=== PATIENT | male | born 1980 | race Caucasian/White ===

== ENCOUNTER 2019-09-13 18:24 | Emergency (ER) | payer OTHER, SELFPAY ==
[2019-09-13 18:26] VITALS: BP 154/97; PULSE 112; RESP 20; TEMP 36.9; O2SAT 96; BMI 43.0
--- NOTE | 2019-09-13 18:32 | XR_ITS ---
WS: [id number] XR chest 1V portable [id number] REASON FOR EXAM: cough FINDINGS: The cardiac silhouette is upper limits of normal. No pneumonia, pleural effusion, pulmonary edema, or mass effect. The hilum and apices normal No osseous abnormalities. XR/XR chest 1V portable [id number] IMPRESSION: Negative chest for acute pathology.
[2019-09-13 18:55] LABS: Basophils # 0.1 10^3/uL (0.0-0.1); Basophils % 0.6 %; Eosinophils # 0.4 10^3/uL (0.0-0.8); Eosinophils % 5.2 %; Hematocrit 39.9 % (42.0-52.0); Hemoglobin 13.5 g/dL (11.7-16.6); Lymphocytes # 2.5 10^3/uL (0.8-4.8); Lymphocytes % 31.7 %; Mean Corpuscular HGB Conc 33.8 g/dL (30.0-36.0); Mean Corpuscular Hemoglobin 29.3 pg (28.0-34.0); Mean Corpuscular Volume 86.6 fL (80-94); Mean Platelet Volume 11.7 fL (7.4-10.4); Monocytes # 0.7 10^3/uL (0.2-0.9); Monocytes % 9.3 %; Neutrophils # 4.1 10^3/uL (1.8-7.7); Neutrophils % 52.8 %; Nucleated Red Blood Cells % 0 %; Platelet Count 190 10^3/cmm (130-400); Red Blood Count 4.61 10^6/uL (4.1-5.3); White Blood Count 7.8 10^3/uL (4.0-10.0)
[2019-09-13 19:11] LABS: Alanine Aminotransferase 35 U/L (0-41); Albumin Level 4.3 g/dL (3.5-5.2); Alkaline Phosphatase 64 IU/L (40-130); Anion Gap 15.3 (5-19); Aspartate Amino Transferase 23 U/L (0-40); Blood Urea Nitrogen 10 mg/dL (6-20); Calcium 8.8 mg/dL (8.5-10.5); Carbon Dioxide 25 mmol/L (22-29); Chloride 100 mmol/L (98-107); Globulin 3.1 g/dL (1.3-4.6); Glomerular Filtration Rate 60.8 mL/min (90-130); Glucose 249 mg/dL (65-115); Osmolality Calculated 284 mOsm/kg (285-295); Potassium 5.3 mmol/L (3.5-5.1); Sodium 135 mmol/L (136-145); Total Bilirubin 0.3 mg/dL (0.15-1.2); Total Protein 7.4 g/dL (6.6-8.7)
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
[2019-09-13] MEDS: sodium chloride 0.9% 1,000 ML 999 ML IV ×2 (19:21→20:29)
[2019-09-13 19:43] LABS: ABG PCO2 37.6 mmHg (35-45); Base Excess ABG -1.1 mmol/L (-2.0-2.0); HCO3 ABG 23.3 mmol/L (22-26); Potassium Level - ABG 4.3 mmol/L (3.5-5.0)
[2019-09-13 19:44] LABS: Arterial Blood Gas Hematocrit 42.7 % (42-52); Blood Gas CCRB Time 1915; Ionized Calcium Level - ABG 1.2 mmol/L (1.1-1.4); Total Hemoglobin 13.9 g/dL (14-18)
[2019-09-13 19:45] LABS: Carboxyhemoglobin 0.4 %THgb (0.4-20.1); Methemoglobin 0.6 % (0.4-1.5)
[2019-09-13 19:50] VITALS: PULSE 91; RESP 18; O2SAT 97
[2019-09-13] MEDS: ipratropium-albuterol 3 mL Neb 9 ML INHALATION (19:50)
[2019-09-13 20:04] LABS: Lactic Sepsis W/Reflex 1.8 mmol/L (0.5-2.2)
[2019-09-13 21:50] VITALS: BP 155/83; PULSE 83; RESP 18; O2SAT 96
[2019-09-13] MEDS: sodium chloride 0.9% 1,000 ML 100 ML IV (22:03)
[2019-09-13 22:08] LABS: ABG PCO2 35.7 mmHg (35-45); ABG PH Result 7.39 (7.35-7.45); Arterial Blood Gas Hematocrit 42.8 % (42-52); Base Excess ABG -2.6 mmol/L (-2.0-2.0); Blood Gas Allen Test Pos; Blood Gas Sample Site Radial, right; Blood Gas Sample Type Arterial; HCO3 ABG 21.7 mmol/L (22-26); Oxygen Device ROOM AIR; PO2 ABG 83.2 mmHg (80.0-100.0)
[2019-09-13] MEDS: predniSONE 20 mg Tablet 60 MG PO (22:54)
--- NOTE | 2019-09-13 23:01 | PC.NURSE ---
Patient confirmed name and birthdate, voiced no known allergies, 5 rights of medication administration confirmed, albuterol inhalation via inhaler 2 puffs once given.
[2019-09-13 23:03] VITALS: BP 133/88; PULSE 98; RESP 18; O2SAT 94
[2019-09-16 13:49] LABS: Alveolar-Arterial Oxygen Gradi 24.6 mmHg (5-10); Blood Gas Allen Test Pos; Blood Gas Sample Site Radial, right; Blood Gas Sample Type Arterial; HGB O2 Sat 95.1 % (95-100); Oxygen Device NC
== END 2019-09-13 23:04 | disposition home or self-care (01) ==
PROVIDERS: Emergency Provider Emergency Medicine; Family Provider Family Medicine; PCP Family Medicine
DX: J70.5 Respiratory conditions due to smoke inhalation (principal); Z79.84 Long term (current) use of oral hypoglycemic drugs; E11.9 Type 2 diabetes mellitus without complications; I10 Essential (primary) hypertension
CPT/HCPCS: 12345; 36600; 71045; 80051; 80053; 82803; 82810; 83605; 83986; 85025; 94640; 96361; 96374; 96375; 99282; 99284; J2930; J3535; J7030; J7512

== ENCOUNTER 2020-05-04 19:58 | Emergency (ER) | payer OTHER, SELFPAY ==
[2020-05-04 20:25] VITALS: BP 159/95; PULSE 92; RESP 16; TEMP 36.8; O2SAT 97; BMI 43.5
--- NOTE | 2020-05-04 20:39 | USR_ITS ---
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 Calf is swollen and very painful. ; Additional info: Pain, swelling TECHNIQUE: Imaging protocol: Real-time Duplex ultrasound of the Right Lower Extremity with 2-D monet scale, color Doppler flow and spectral waveform analysis with image documentation. Limited exam was focused on the right lower extremity veins. COMPARISON: No relevant prior studies available. FINDINGS: Right deep veins: Unremarkable. The common femoral, femoral, proximal profunda femoral and popliteal veins are patent without thrombus. Normal Doppler waveforms. Normal compressibility and/or augmentation response. Right superficial veins: Unremarkable. Saphenofemoral junction is patent without thrombus. Soft tissues: Small amount of fluid in the fascial plane between the subcutaneous tissues and the underlying musculature. This could be due prior injury. Per report from the geodetic surveyor technologist, this corresponds to the site of the patient's pain. US/[place] [id number] IMPRESSION: 1. No evidence for deep venous thrombosis. 2. Small amount of fluid in the fascial plane between the subcutaneous tissues and the underlying musculature. This could be due prior injury. Per report from the geodetic surveyor technologist, this corresponds to the site of the patient's pain.
--- NOTE | 2020-05-04 20:40 | W.ED.EXTPRO ---
HPI - Extremity Problem General: Chief complaint: Extremity Injury, Lower Stated complaint: believes he tore muscle in right calf/workmans com Time Seen by Provider: 05/04/20 20:35 History of Present Illness: HPI Narrative: Patient says he stepped out of her truck last night felt sharp pain to behind his leg in the calf area in the right side. He said he almost went down. He continues to bother him. Denies any injury that he is aware of. MD Complaint: extremity pain and extremity swelling Onset (ago): day(s) Pain Consistency: constant Location: right and lower extremity Severity scale (1-10): 6 Quality: stabbing and aching Radiation: none Relieving factors: immobilization Exacerbating factors: range of motion Associated symptoms: Reports no associated symptoms; Deny chest pain, fever(s) or rash Review of Systems Const: Denies: fever(s), chills or body aches Eyes: Denies: change in vision or blurry vision ENMT: Denies: throat pain or nasal congestion Card: Denies: chest pain or dyspnea on exertion Resp: Denies: dyspnea, productive cough or non-productive cough GI: Denies: abdominal pain, nausea or vomiting : Denies: difficulty urinating Musc: Reports: extremity pain (Right calf hurt) Skin/Breast: Denies: rash Neuro: Denies: headache(s) Psych: Denies: anxiety or depression [place]/Lymph: Denies: easy bruising PFS ED PFSH: Medical History (Updated 09/21/19 @ 00:00 by ) Diabetes mellitus Hypertension Social History Smoking and tobacco status: never smoked Physical Exam Const: COMMON NORMALS: no acute distress, average body habitus and patient oriented x3 HENMT: COMMON NORMALS: normocephalic HEAD & SCALP: normal to inspection and normocephalic FACE & SINUS: normal facial exam Eye: COMMON NORMALS: conjunctivae normal GENERAL EYE: appearance normal, both eyes and all related structures CONJUNCTIVA: Yes conjunctivae normal Neck/C-Spine: COMMON NORMALS: no JVD Chest: COMMONS NORMALS: normal inspection of the chest Resp: COMMON NORMALS: normal respiratory effort and clear to auscultation bilaterally AUSCULTATION: clear to auscultation bilaterally Cardio: COMMON NORMALS: no JVD, regular rate and regular rhythm RATE: regular rate RHYTHM: regular rhythm GI: COMMON NORMALS: Normal to inspection, nondistended, normoactive bowel sounds present Extremity: COMMON NORMALS: normal to inspection and full ROM RIGHT LOWER EXTREMITY: Yes lower leg (Swollen tender to middle calf positive Homans' sign erythema to the calf) Neuro: COMMON NORMALS: patient oriented x3 Course Vital Signs: Vital signs: Vital Signs Temperature 98.2 F 05/04/20 20:25 Pulse Rate 92 05/04/20 20:25 Respiratory Rate 16 05/04/20 20:25 Blood Pressure 159/95 05/04/20 20:25 Pulse Oximetry 97 05/04/20 20:25 Discharge Plan Discharge Prescriptions: No Action metformin 500 mg tablet 500 mg PO BID RF: 0 lisinopril 20 mg tablet 20 mg PO DAILY RF: 0 [place] Thyroid 15 mg tablet 15 mg PO DAILY RF: 0 prednisone 10 mg tablets,dose pack See Rx Instructions .ROUTE .COMPLEX Qty: 21 RF: 0 albuterol sulfate 90 mcg/actuation HFA aerosol inhaler 2 inh INHALATION Q4H PRN (Reason: shortness of breath or wheezing) Qty: 6.7 RF: 0 Coding Level of Care Code ED Supervisor Order Takers for Armeng Barb
[2020-05-04 21:23] LABS: Basophils % 0.5 %; Eosinophils # 0.3 10^3/uL (0.0-0.8); Eosinophils % 3.6 %; Hematocrit 41.8 % (42.0-52.0); Hemoglobin 14.3 g/dL (11.7-16.6); Lymphocytes # 3.3 10^3/uL (0.8-4.8); Mean Corpuscular HGB Conc 34.2 g/dL (30.0-36.0); Mean Corpuscular Hemoglobin 28.8 pg (28.0-34.0); Mean Corpuscular Volume 84.1 fL (80-94); Mean Platelet Volume 11.8 fL (7.4-10.4); Monocytes # 0.5 10^3/uL (0.2-0.9); Monocytes % 6.9 %; Neutrophils # 3.46 10^3/uL (1.8-7.7); Neutrophils % 45.7 %; Nucleated Red Blood Cells % 0 %; Platelet Count 223 10^3/cmm (130-400); Red Blood Count 4.97 10^6/uL (4.1-5.3); Red Cell Distribution Width 12.3 % (12.1-15.1); White Blood Count 7.6 10^3/uL (4.0-10.0)
[2020-05-04 21:30] LABS: INR 0.98 (0.8-1.2)
[2020-05-04 21:33] LABS: D Dimer <= 0.27 ug/mIFEU (0-0.59)
[2020-05-04] MEDS: TRAMadol 50 mg Tablet 100 MG PO (22:23)
[2020-05-04 22:28] VITALS: BP 134/86; PULSE 84; RESP 14; O2SAT 99
--- NOTE | 2020-05-07 08:28 | DCPLANNER ---
manager parking had message to schedule a follow up appointment for patient with ortho. manager parking called the ortho clinic, spoke with Mady, gave clinic patients information. manager parking was told that patients information would be printed and reviewed. Clinic will call patient with appointment information.
--- NOTE | 2020-05-09 13:50 | DCPLANNER ---
Patient has a follow up appointment scheduled for Thursday, May 14, [address] at 9:[address] Lao. Clinic will call patient with appointment information.
--- NOTE | 2020-05-30 15:55 | DCPLANNER ---
Patient had a follow up appointment scheduled for 05.14.20 with ortho - patient did attend the appointment.
== END 2020-05-04 22:29 | disposition home or self-care (01) ==
PROVIDERS: Emergency Provider Nurse Practitioner Family; PCP Family Medicine
DX: M79.604 Pain in right leg (principal); Z79.84 Long term (current) use of oral hypoglycemic drugs; E11.9 Type 2 diabetes mellitus without complications; I10 Essential (primary) hypertension
CPT/HCPCS: 12345; 36415; 85025; 85378; 85610; 93971; 99281; 99283

== ENCOUNTER 2020-06-14 12:01 | Outpatient (RCR) | payer OTHER, SELFPAY | END 2020-06-28 15:47 | disposition home or self-care (01) | LOC: SPT 12:01 | PROVIDERS: PCP Family Medicine; Referring Provider Orthopaedic Surgery; Visit Provider Orthopaedic Surgery | DX: S86.111D Strain of other muscle(s) and tendon(s) of posterior muscle group at lower leg level, right leg, subsequent encounter (principal); X58.XXXD Exposure to other specified factors, subsequent encounter | CPT/HCPCS: 97110; 97161 ==

== ENCOUNTER → 2021-01-22 11:05 | Outpatient (BNVA) | payer BC, SELFPAY | PROVIDERS: PCP Family Medicine; Visit Provider Nurse Practitioner Family | DX: Z20.822 Contact with and (suspected) exposure to COVID-19 (principal); J06.9 Acute upper respiratory infection, unspecified | CPT/HCPCS: 87426 ==

== ENCOUNTER 2021-01-24 08:44 | Outpatient (CLI) | payer BC, SELFPAY ==
[2021-01-24 09:02] VITALS: BP 144/87; PULSE 83; RESP 18; TEMP 36.7; O2SAT 98; BMI 44.8
[2021-01-24 09:35] VITALS: BP 127/73; PULSE 80; RESP 18; O2SAT 97
[2021-01-24 10:29] VITALS: BP 144/87; PULSE 87; RESP 18; TEMP 36.6; O2SAT 94
== END 2021-01-24 10:35 | disposition home or self-care (01) ==
LOC: OPS 08:49
PROVIDERS: PCP Family Medicine; Visit Provider Nurse Practitioner Family
DX: U07.1 COVID-19 (principal)
CPT/HCPCS: 96365

== ENCOUNTER 2022-03-22 18:44 | Emergency (ER) | payer BC, SELFPAY ==
[2022-03-22 18:47] VITALS: BP 158/107; PULSE 98; RESP 16; TEMP 36.9; O2SAT 97; BMI 39.6
[2022-03-22 18:59] LABS: Glucose Point of Care > 600 mg/dL (70-110)
--- NOTE | 2022-03-22 19:03 | ED_ITS ---
HPI - General Adult General: Chief complaint: General Medical Stated complaint: Blood sugar high Time Seen by Provider: 03/22/22 18:54 Source: patient and family History of Present Illness: 41-year-old male type II diabetic he has been out of his Jardiance for 2 weeks. He notes that he has been feeling tired, thirsty all the time, and urinating frequently. His blood sugar read high at home. No vomiting. He has still been taking his metformin. Onset (ago): week(s) Radiation: non-radiation Severity: moderate Quality: other Pain Consistency: other Relieving factors: other Associated symptoms: Reports nausea; Deny chest pain, confusion, dyspnea, headache(s), rash, palpitations or vomiting Review of Systems Const: Denies: fever(s), chills or body aches Eyes: Denies: change in vision Card: Denies: chest pain or palpitations Resp: Denies: dyspnea, productive cough, non-productive cough or wheezing GI: Reports: nausea; Denies: abdominal pain, vomiting, diarrhea or hematochezia Skin/Breast: Denies: rash Neuro: Denies: headache(s), weakness in extremities, dizziness or confusion Endo: Reports: polyuria, polydipsia and tired all the time [facility] ED PFSH: Medical History (Updated 03/22/22 @ 21:41 by Aaron Lynn DO) Diabetes mellitus Hypertension Social History Smoking and tobacco status: never smoked Physical Exam Const: COMMON NORMALS: no acute distress GENERAL APPEARANCE: cooperative; not ill appearing and not frail appearing HENMT: COMMON NORMALS: normocephalic, atraumatic and Normal external nose present HEAD & SCALP: normocephalic and atraumatic FACE & SINUS: normal facial exam and face symmetric NOSE: Normal external nose present Eye: COMMON NORMALS: Equal, round and reactive pupils present and EOMs intact bilaterally PUPIL: Yes Equal, round and reactive pupils present Neck/C-Spine: GENERAL: Yes trachea midline Chest: CHEST: Yes Symmetrical chest wall rise Resp: COMMON NORMALS: normal respiratory effort, No retractions, No use of accessory muscles and clear to auscultation bilaterally AUSCULTATION: clear to auscultation bilaterally Cardio: COMMON NORMALS: regular rate and regular rhythm RATE: regular rate RHYTHM: regular rhythm GI: COMMON NORMALS: Normal to inspection, nondistended, normoactive bowel sounds present Extremity: COMMON NORMALS: no pedal edema Neuro: ESA COMA SCALE: document GCS findings [place] coma scale eye opening: Spontaneous Esa coma scale verbal response: Orientated [place] coma scale motor response: Obey commands Esa coma scale total score: 15 SENSORY EXAM: Yes extremities (intact) Psych: COMMON NORMALS: speech normal SPEECH: Yes normal speech Skin: COMMON NORMALS: no rashes or lesions noted GENERAL SKIN EXAM: no rashes or lesions noted Course Vital Signs: Vital signs: Vital Signs Temperature 98.4 F 03/22/22 18:47 Pulse Rate 90 03/22/22 20:45 Respiratory Rate 20 H 03/22/22 20:45 Blood Pressure 142/94 03/22/22 20:45 Pulse Oximetry 97 03/22/22 20:45 Oxygen Delivery Me thod 03/22/22 20:00 MDM - General Adult Medical Decision Making Blood sugar initially 760 with a bicarb of 9 and pseudohyponatremia of 126. After IV insulin fluid bolus, his sugar is now 267. He is feeling improved. Still thirsty. Bicarbonate is 19. Serum ketones are negative. He will be injected with 12 units of Lantus for continued control, and this will be prescribed for him nightly. We will fill his Jardiance which she will take as well. He will check his sugar twice daily. He is to return if worsening. Follow-up with PCP. Lab Data : 03/22/22 19:09 03/22/22 19:09 Laboratory Results WBC 7.0 10^3/uL (4.0-10.0) 03/22/22 19:09 RBC 5.23 10^6/uL (4.1-5.3) 03/22/22 19:09 Hgb 15.3 g/dL (11.7-16.6) 03/22/22 19:09 Hct 44.2 % (42.0-52.0) 03/22/22 19:09 MCV 84.5 fl (80-94) 03/22/22 19:09 MCH 29.3 pg (28.0-34.0) 03/22/22 19:09 MCHC 34.6 g/dL (30.0-36.0) 03/22/22 19:09 RDW 11.9 % (12.1-15.1) L 03/22/22 19:09 Plt Count 187 10^3/cmm (130-400) 03/22/22 19:09 MPV 12.3 fL (7.4-10.4) H 03/22/22 19:09 Neut % (Auto) 45.7 % 03/22/22 19:09 Lymph % (Auto) 43.7 % 03/22/22 19:09 [place] % (Auto) 7.1 % 03/22/22 19:09 Eos % (Auto) 2.4 % 03/22/22 19:09 Baso % (Auto) 0.4 % 03/22/22 19:09 Neut # (Auto) 3.20 10^3/uL (1.8-7.7) 03/22/22 19:09 Lymph # (Auto) 3.1 10^3/uL (0.8-4.8) 03/22/22 19:09 [place] # (Auto) 0.5 10^3/uL (0.2-0.9) 03/22/22 19:09 Eos # (Auto) 0.2 10^3/uL (0.0-0.8) 03/22/22 19:09 Baso # (Auto) 0.0 10^3/uL (0.0-0.1) 03/22/22 19:09 Nucleated RBC % (auto) 0 % 03/22/22 19:09 Nucleated RBCs # 0.0 /100WBC 03/22/22 19:09 Sodium 126 mmol/L (136-145) L 03/22/22 19:09 Potassium 4.4 mmol/L (3.5-5.1) 03/22/22 19:09 Chloride 90 mmol/L (98-107) L 03/22/22 19:09 Carbon Dioxide 19 mmol/L (22-29) L 03/22/22 19:09 Anion Gap 21.4 (5-19) H 03/22/22 19:09 BUN 10 mg/dL (6-20) 03/22/22 19:09 Creatinine 1.0 mg/dL (0.7-1.2) 03/22/22 19:09 GFR Calculation 81.6 mL/min (90-130) L 03/22/22 19:09 Glucose 760 mg/dL (65-115) H* 03/22/22 19:09 POC Glucose 267 mg/dL (70-110) H 03/22/22 20:58 Calculated Osmolality 298 mOsm/kg (285-295) H 03/22/22 19:09 Calcium 9.5 mg/dL (8.5-10.5) 03/22/22 19:09 Magnesium 1.8 mg/dL (1.7-2.3) 03/22/22 19:09 Total Bilirubin 0.2 mg/dL (0.15-1.2) 03/22/22 19:09 AST 18 U/L (0-40) 03/22/22 19:09 ALT 23 U/L (0-41) 03/22/22 19:09 Alkaline Phosphatase 112 U/L (40-130) 03/22/22 19:09 Total Protein 7.8 g/dL (6.6-8.7) 03/22/22 19:09 Albumin 4.3 g/dL (3.5-5.2) 03/22/22 19:09 Globulin 3.5 g/dL (1.3-4.6) 03/22/22 19:09 Urine Color Colorless (Yellow) 03/22/22 18:55 Urine Appearance Clear (CLEAR) 03/22/22 18:55 Urine pH 5 (5-7) 03/22/22 18:55 Ur Specific [place] 1.005 (1.005-1.030) 03/22/22 18:55 Urine Protein Neg (Negative) 03/22/22 18:55 Urine Glucose (UA) 4+ (Normal) H 03/22/22 18:55 Urine Ketones Negative (Negative) 03/22/22 18:55 Urine Blood Neg (Negative) 03/22/22 18:55 Urine Nitrate Negative (Negative) 03/22/22 18:55 Urine Bilirubin Neg (Negative) 03/22/22 18:55 Urine Urobilinogen Norm mg/dL (Negative) 03/22/22 18:55 Ur Leukocyte Esterase Negative (Negative) 03/22/22 18:55 Serum Ketones Negative (Negative) 03/22/22 19:09 Discharge Plan Discharge Patient Disposition: Home Clinical Impression: Acute hyperglycemia Condition: Stable Prescriptions: New Lantus Solostar U-100 Insulin 100 unit/mL (3 mL) insulin pen 12 unit SUBCUT QPM Qty: 15 0RF Continued Jardiance 10 mg tablet 10 mg PO DAILY Qty: 30 0RF No Action Trulicity 0.75 mg/0.5 mL pen injector SUBCUT ondansetron 4 mg tablet,disintegrating 4 mg PO Q8H PRN (Reason: nausea and vomiting) Qty: 20 0RF metformin 500 mg tablet 500 mg PO BID lisinopril 20 mg tablet 20 mg PO DAILY [place] Thyroid 15 mg tablet 15 mg PO DAILY albuterol sulfate 90 mcg/actuation HFA aerosol inhaler 2 inh INHALATION Q4H PRN (Reason: shortness of breath or wheezing) Qty: 6.7 0RF Discharge Orders: Discharge ED (Routine); Ordered 03/22/22 Ordered By: Aaron Lynn Referrals: Luisana Hernandes DO [Primary Care Provider] - 1-3 days Patient Instructions: Diabetic Hyperglycemia (ED) Activity Restrictions/Additional Instructions: Continue to check your sugar at least twice daily use the long-acting insulin at night as we discussed. Fill your Jardiance. Watch her sugars closely. Return for any concerning symptoms. Follow-up with your doctor. Coding Level of Care Code ED Paleologist for Kristen Fwd Exam Comprehensive
[2022-03-22] MEDS: insulin regular-human 100 units/1 mL 12 UNIT IVP ×2 (19:15→20:11)
[2022-03-22 19:17] LABS: Basophils % 0.4 %; Eosinophils # 0.2 10^3/uL (0.0-0.8); Eosinophils % 2.4 %; Hematocrit 44.2 % (42.0-52.0); Hemoglobin 15.3 g/dL (11.7-16.6); Lymphocytes # 3.1 10^3/uL (0.8-4.8); Lymphocytes % 43.7 %; Mean Corpuscular HGB Conc 34.6 g/dL (30.0-36.0); Mean Corpuscular Hemoglobin 29.3 pg (28.0-34.0); Mean Corpuscular Volume 84.5 fl (80-94); Mean Platelet Volume 12.3 fL (7.4-10.4); Monocytes # 0.5 10^3/uL (0.2-0.9); Monocytes % 7.1 %; Neutrophils % 45.7 %; Nucleated Red Blood Cells % 0 %; Platelet Count 187 10^3/cmm (130-400); Red Blood Count 5.23 10^6/uL (4.1-5.3); Red Cell Distribution Width 11.9 % (12.1-15.1)
[2022-03-22] MEDS: sodium chloride 0.9% 1,000 ML 999 ML IV ×2 (19:17→20:09)
[2022-03-22 19:31] LABS: Ketone (Acetest) Serum Negative (Negative)
[2022-03-22 19:37] LABS: Alanine Aminotransferase 23 U/L (0-41); Albumin Level 4.3 g/dL (3.5-5.2); Alkaline Phosphatase 112 U/L (40-130); Blood Urea Nitrogen 10 mg/dL (6-20); Calcium 9.5 mg/dL (8.5-10.5); Carbon Dioxide 19 mmol/L (22-29); Chloride 90 mmol/L (98-107); Globulin 3.5 g/dL (1.3-4.6); Glomerular Filtration Rate 81.6 mL/min (90-130); Magnesium 1.8 mg/dL (1.7-2.3); Sodium 126 mmol/L (136-145); Total Bilirubin 0.2 mg/dL (0.15-1.2); Total Protein 7.8 g/dL (6.6-8.7)
[2022-03-22 19:38] LABS: Anion Gap 21.4 (5-19); Aspartate Amino Transferase 18 U/L (0-40); Potassium 4.4 mmol/L (3.5-5.1)
[2022-03-22 19:46] LABS: Osmolality Calculated 298 mOsm/kg (285-295)
[2022-03-22 19:48] LABS: Glucose 760 mg/dL (65-115)
[2022-03-22 19:50] VITALS: BP 148/92; PULSE 86; RESP 22; O2SAT 98
[2022-03-22 19:58] LABS: Add Urine Microscopic? NO; Charge for UA Resulting for Rev
[2022-03-22 20:00] VITALS: BP 141/90; PULSE 73; RESP 18; O2SAT 96
[2022-03-22 20:02] LABS: Bilirubin Urine Neg (Negative); Blood Urine Neg (Negative); Glucose Urine UA 4+ (Normal); Ketones Urine Negative (Negative); Leukocyte Esterase Urine Negative (Negative); Nitrate Urine Negative (Negative); Protein Urine Neg (Negative); Specific Gravity, Urine 1.005 (1.005-1.030); Urine Appearance Clear (CLEAR); Urine Color Colorless (Yellow); Urobilinogen Urine Norm (Negative); pH Urine 5 (5-7)
[2022-03-22 20:15] LABS: Glucose Point of Care 499 mg/dL (70-110)
[2022-03-22 20:45] VITALS: BP 142/94; PULSE 90; RESP 20; O2SAT 97
[2022-03-22 21:02] LABS: Glucose Point of Care 267 mg/dL (70-110)
[2022-03-22] MEDS: insulin glargine 100 units/1 mL 12 UNIT SUBCUT (22:12)
[2022-03-22 22:15] VITALS: BP 132/85; PULSE 89
[2022-03-22 22:20] VITALS: BP 132/85; PULSE 89; RESP 24; O2SAT 96
== END 2022-03-22 22:24 | disposition home or self-care (01) ==
PROVIDERS: Emergency Provider Emergency Medicine; PCP Family Medicine
DX: E11.65 Type 2 diabetes mellitus with hyperglycemia (principal); Z79.84 Long term (current) use of oral hypoglycemic drugs; I10 Essential (primary) hypertension
CPT/HCPCS: 36416; 80053; 81003; 82009; 82962; 83735; 85025; 96361; 96372; 96374; 96376; 99284; J1815; J7030

== ENCOUNTER 2022-03-23 20:53 | Emergency (ER) | payer BC, SELFPAY ==
[2022-03-23 21:04] VITALS: BP 153/93; PULSE 83; RESP 18; TEMP 37.1; O2SAT 98; BMI 39.6
--- NOTE | 2022-03-23 21:14 | ED_ITS ---
HPI - General Adult General: Chief complaint: General Medical Stated complaint: High blood sugar Time Seen by Provider: 03/23/22 21:00 History of Present Illness: 41-year-old male patient comes in today for complaints of elevated blood glucose. Patient's sugar was 586 and he come back to the ER. Patient had taken 10 mg of his Jardiance at around noon today and then 12 units of Lantus this evening. Patient has been without his Jardiance for about 2 weeks and came into the ER last night and was treated for hyperglycemia. Patient did not appear to be in acidosis at that time. Patient reports that this morning his blood glucose was 300 and then this early evening before he took his Lantus it was 400. Then at bedtime it was elevated again to 586 which prompted him to come to the ER. Patient appears nontoxic. Patient appears in no pain. Patient denies any nausea or vomiting. Associated symptoms: Deny chest pain, dyspnea, nausea or vomiting Review of Systems Const: Denies: fever(s) Card: Denies: chest pain Resp: Denies: dyspnea GI: Denies: nausea or vomiting : Reports: urinary frequency Musc: Denies: neck pain or back pain PFS ED PFSH: Medical History (Updated 03/23/22 @ 23:59 by MARY ELLEN Wagoner) Diabetes mellitus Hypertension Social History Smoking and tobacco status: never smoked Physical Exam Const: COMMON NORMALS: alert HENMT: COMMON NORMALS: normocephalic and Normal external nose present HEAD & SCALP: normocephalic NOSE: Normal external nose present MOUTH: Normal oral and palatal mucosa present Neck/C-Spine: COMMON NORMALS: full ROM Resp: COMMON NORMALS: normal respiratory effort and clear to auscultation bilaterally AUSCULTATION: clear to auscultation bilaterally Cardio: COMMON NORMALS: regular rate and regular rhythm RATE: regular rate RHYTHM: regular rhythm GI: COMMON NORMALS: Soft to palpation and non-tender PALPATION: Yes Soft to palpation : COMMON NORMALS: Yes no CVA tenderness BLADDER/KIDNEY EXAM: Yes no CVA tenderness Back/Pelvis: COMMON NORMALS: no CVA tenderness Extremity: COMMON NORMALS: full ROM and capillary refill normal Neuro: SENSORIUM/ORIENTATION: Yes alert Psych: COMMON NORMALS: cooperative Skin: COMMON NORMALS: turgor normal GENERAL SKIN EXAM: turgor normal Course Vital Signs: Vital signs: Vital Signs Temperature 98.7 F 03/23/22 21:04 Pulse Rate 83 03/23/22 21:04 Respiratory Rate 18 03/23/22 21:04 Blood Pressure 153/93 03/23/22 21:04 Pulse Oximetry 98 03/23/22 21:04 Oxygen Delivery Me thod 03/23/22 21:04 [facility] - General Adult Medical Decision Making Patient came in tonight for concerns of elevated blood glucose. Patient had a registered reading of 586 at home. Patient was seen yesterday for elevated glucose after running out of his Jardiance x2 weeks. On exam patient is oral mucosa slightly dry. Skin is warm and dry. Respirations are even. Differential diagnosis includes DKA, acute hyperglycemia, uncontrolled diabetes mellitus. Patient's labs overall are better than yesterday's labs. Blood glucose remained high at 563. Patient was given 12 units of Humalog subcu and reevaluated 2 hours later showing a decline to 319. Adjustments were made to patient's schedule for his Lantus increasing from 10 units to 24 units based on his weight, recommended patient go up to 25 mg on his Jardiance, and he was placed on a sliding scale insulin. Patient reported understanding of care plan and need for follow-up or return to the ER. Lab Data : 03/23/22 21:36 03/23/22 21:36 Laboratory Results WBC 6.3 10^3/uL (4.0-10.0) 03/23/22 21:36 RBC 4.87 10^6/uL (4.1-5.3) 03/23/22 21:36 Hgb 14.4 g/dL (11.7-16.6) 03/23/22 21:36 Hct 41.0 % (42.0-52.0) L 03/23/22 21:36 MCV 84.2 fl (80-94) 03/23/22 21:36 MCH 29.6 pg (28.0-34.0) 03/23/22 21:36 MCHC 35.1 g/dL (30.0-36.0) 03/23/22 21:36 RDW 11.9 % (12.1-15.1) L 03/23/22 21:36 Plt Count 168 10^3/cmm (130-400) 03/23/22 21:36 MPV 12.0 fL (7.4-10.4) H 03/23/22 21:36 Neut % (Auto) 41.1 % 03/23/22 21:36 Lymph % (Auto) 46.7 % 03/23/22 21:36 [place] % (Auto) 8.2 % 03/23/22 21:36 Eos % (Auto) 3.2 % 03/23/22 21:36 Baso % (Auto) 0.3 % 03/23/22 21:36 Neut # (Auto) 2.60 10^3/uL (1.8-7.7) 03/23/22 21:36 Lymph # (Auto) 3.0 10^3/uL (0.8-4.8) 03/23/22 21:36 [place] # (Auto) 0.5 10^3/uL (0.2-0.9) 03/23/22 21:36 Eos # (Auto) 0.2 10^3/uL (0.0-0.8) 03/23/22 21:36 Baso # (Auto) 0.0 10^3/uL (0.0-0.1) 03/23/22 21:36 Nucleated RBC % (auto) 0 % 03/23/22 21:36 Nucleated RBCs # 0.0 /100WBC 03/23/22 21:36 Sodium 133 mmol/L (136-145) L 03/23/22 21:36 Potassium 4.5 mmol/L (3.5-5.1) 03/23/22 21:36 Chloride 98 mmol/L (98-107) 03/23/22 21:36 Carbon Dioxide 24 mmol/L (22-29) 03/23/22 21:36 Anion Gap 15.5 (5-19) 03/23/22 21:36 BUN 9 mg/dL (6-20) 03/23/22 21:36 Creatinine 1.1 mg/dL (0.7-1.2) 03/23/22 21:36 GFR Calculation 73.1 mL/min (90-130) L 03/23/22 21:36 Glucose 563 mg/dL (65-115) H* 11/13/22 21:36 POC Glucose 319 mg/dL (70-110) H 03/23/22 23:47 Calculated Osmolality 300 mOsm/kg (285-295) H 03/23/22 21:36 Calcium 9.0 mg/dL (8.5-10.5) 03/23/22 21:36 Total Bilirubin 0.2 mg/dL (0.15-1.2) 03/23/22 21:36 AST 16 U/L (0-40) 03/23/22 21:36 ALT 23 U/L (0-41) 03/23/22 21:36 Alkaline Phosphatase 96 U/L (40-130) 03/23/22 21:36 Total Protein 6.8 g/dL (6.6-8.7) 03/23/22 21:36 Albumin 3.8 g/dL (3.5-5.2) 03/23/22 21:36 Globulin 3.0 g/dL (1.3-4.6) 03/23/22 21:36 Lipase 33 U/L (13-60) 03/23/22 21:36 Serum Ketones Negative (Negative) 03/23/22 21:36 Discharge Plan Discharge Patient Disposition: Home Clinical Impression: Diabetes mellitus, Hyperglycemia Condition: Stable Prescriptions: New empagliflozin 25 mg tablet 25 mg PO DAILY Qty: 30 2RF Humalog U-100 Insulin 100 unit/mL solution 8 unit SUBCUT TID PRN (Reason: hyperglycemia) Qty: 10 0RF Rx Instructions: per sliding scale Changed Lantus Solostar U-100 Insulin 100 unit/mL (3 mL) insulin pen 30 unit SUBCUT QPM Qty: 15 0RF Discontinued Jardiance 10 mg tablet 10 mg PO DAILY Qty: 30 0RF No Action Trulicity 0.75 mg/0.5 mL pen injector SUBCUT ondansetron 4 mg tablet,disintegrating 4 mg PO Q8H PRN (Reason: nausea and vomiting) Qty: 20 0RF metformin 500 mg tablet 500 mg PO BID lisinopril 20 mg tablet 20 mg PO DAILY [place] Thyroid 15 mg tablet 15 mg PO DAILY albuterol sulfate 90 mcg/actuation HFA aerosol inhaler 2 inh INHALATION Q4H PRN (Reason: shortness of breath or wheezing) Qty: 6.7 0RF Discharge Orders: Discharge ED (Routine); Ordered 03/23/22 Ordered By: James Lua Referrals: Luisana Hernandes DO [Primary Care Provider] - Patient Instructions: Diabetic Hyperglycemia (ED) Activity Restrictions/Additional Instructions: Use to moderate scale on the sliding scale insulin sheet 3 times a day before eating. Increase your Lantus insulin to 24 units a day. Increase Jardiance to 20 mg a day until it is time to fill the new prescription. Follow-up with primary care at next available appointment to review plan and make changes. Return to ER for new concerns or worsening symptoms. Coding Level of Care Code ED Mental Health Professional for Chg Fwd Exam Comprehensive
[2022-03-23] MEDS: sodium chloride 0.9% 1,000 ML 999 ML IV (21:36)
[2022-03-23 21:42] LABS: Basophils % 0.3 %; Eosinophils # 0.2 10^3/uL (0.0-0.8); Eosinophils % 3.2 %; Hemoglobin 14.4 g/dL (11.7-16.6); Lymphocytes % 46.7 %; Mean Corpuscular HGB Conc 35.1 g/dL (30.0-36.0); Mean Corpuscular Hemoglobin 29.6 pg (28.0-34.0); Mean Corpuscular Volume 84.2 fl (80-94); Monocytes # 0.5 10^3/uL (0.2-0.9); Monocytes % 8.2 %; Neutrophils % 41.1 %; Nucleated Red Blood Cells % 0 %; Platelet Count 168 10^3/cmm (130-400); Red Blood Count 4.87 10^6/uL (4.1-5.3); Red Cell Distribution Width 11.9 % (12.1-15.1); White Blood Count 6.3 10^3/uL (4.0-10.0)
[2022-03-23 21:43] LABS: Glucose Point of Care 517 mg/dL (70-110)
[2022-03-23] MEDS: insulin lispro 100 unit/1 mL 12 UNIT SUBCUT (21:47)
[2022-03-23 21:52] LABS: Ketone (Acetest) Serum Negative (Negative)
[2022-03-23 21:59] LABS: Alanine Aminotransferase 23 U/L (0-41); Albumin Level 3.8 g/dL (3.5-5.2); Alkaline Phosphatase 96 U/L (40-130); Anion Gap 15.5 (5-19); Aspartate Amino Transferase 16 U/L (0-40); Blood Urea Nitrogen 9 mg/dL (6-20); Carbon Dioxide 24 mmol/L (22-29); Chloride 98 mmol/L (98-107); Glomerular Filtration Rate 73.1 mL/min (90-130); Lipase 33 U/L (13-60); Osmolality Calculated 300 mOsm/kg (285-295); Potassium 4.5 mmol/L (3.5-5.1); Sodium 133 mmol/L (136-145); Total Bilirubin 0.2 mg/dL (0.15-1.2); Total Protein 6.8 g/dL (6.6-8.7)
[2022-03-23 22:13] LABS: Glucose 563 mg/dL (65-115)
[2022-03-23 23:50] LABS: Glucose Point of Care 319 mg/dL (70-110)
[2022-03-24 00:13] VITALS: BP 118/80; PULSE 61; RESP 16; O2SAT 97
== END 2022-03-24 00:15 | disposition home or self-care (01) ==
PROVIDERS: Emergency Provider Nurse Practitioner Family; PCP Family Medicine
DX: E11.65 Type 2 diabetes mellitus with hyperglycemia (principal); I10 Essential (primary) hypertension
CPT/HCPCS: 36416; 80053; 82009; 82962; 83690; 85025; 96361; 96372; 96374; 99284; J1815; J7030

== ENCOUNTER 2023-11-18 05:52 | Day surgery (SDC) | payer BC, SELFPAY ==
[2023-11-18 06:07] VITALS: BP 123/86; PULSE 70; RESP 16; TEMP 36.3; O2SAT 96; BMI 41.0
[2023-11-18] MEDS: sodium chloride 0.9% 1,000 ML 30 ML IV (06:17)
[2023-11-18 06:20] LABS: Glucose Point of Care 204 mg/dL (70-110)
--- NOTE | 2023-11-18 06:45 | P.ANESASSM_ITS ---
Pre-Anesthetic Assessment Height/Weight: Height 1.73 m Weight 122.47 kg Temp Pulse Resp BP Pulse Ox O2 Del Method 97.3 F L 70 16 123/86 96 Room Air 11/18/23 06:07 11/18/23 06:07 11/18/23 06:07 11/18/23 06:07 11/18/23 06:07 11/18/23 06:07 Preop Diagnosis: positive colorectal screening Operation Date: 11/18/23 07:00 Proposed Procedures p Colonoscopy 13829, G0105, R19.5(Not Applicable) - Primo Carreon DO Familial anesthetic complications: none Was Beta Cathy taken within 24 hours: N/A Was Clonidine taken within 24 hours: N/A Last intake: Intake Last Liquid Date 11/17/23 Last Liquid Time 20:00 Last Solid Date 11/16/23 Last Solid Time 19:00 Social Alcohol (every 6 months rare.) Exam alert, oriented x 3, clear to auscultation bilaterally and regular rate & rhythm Airway Submandibular: within normal limits Cervical ROM: within normal limits Mallampati: Class IV Dentition: full Pulmonary Sleep Apnea (cpap compliant) CV/HEM None reported None reported Hepatic None reported GI Gastroesophageal Reflux Disease Metabolic Diabetes Mellitus, Morbid Obesity and Thyroid Disease [facility] None reported Neuropsych None reported Anesthetic Plan ASA status: 3 Anesthesia: MAC Medications/Allergies Home Medications Medication Instructions Recorded Confirmed Last Taken Type albuterol sulfate 90 mcg/actuation 2 inh inhalation Q4H PRN shortness 09/13/19 11/18/23 Unknown Rx aerosol inhaler of breath or wheezing #6.7 grams thyroid (pork) 15 mg tablet 15 mg PO DAILY 09/13/19 11/18/23 11/04/23 History ([place] Thyroid) tirzepatide 2.5 mg/0.5 mL 15 mg SUBCUT .WEEKLY 09/28/23 11/16/23 10/29/23 History subcutaneous pen injector (Mounjaro) Allergies Allergy/AdvReac Type Severity Reaction Status Date / Time levothyroxine Allergy ADR-Muscle Verified 09/28/23 15:25 Pain Current Medications Generic Name Dose Route Start Last Admin Trade Name Freq PRN Reason Stop Dose Admin Sodium Chloride 1,000 mls @ 30 mls/hr 11/18/23 06:00 11/18/23 06:17 Sodium Chloride 0.9% IV 11/19/23 05:59 30 mls/hr .Q24H DAHLIA Administration PFSH Anesthesia Medical History (Updated 09/28/23 @ 15:47 by Primo Carreon DO) Diabetes mellitus Hypertension Social History Smoking and tobacco/nicotine status: never used tobacco/nicotine Data Anesthesia Cardiac Studies: No Data to Display
--- NOTE | 2023-11-18 06:58 | PM.HP ---
Providers/Chief Complaint Primary Care Provider: Luisana Hernandes DO Chief Complaint: R19.5 History of Present Illness Iglesia Sheldon is a 43 year old male Review of Systems General: Reports: 10 or more systems reviewed and unremarkable except in HPI and below Medications/Allergies Home Medications Medication Instructions Recorded Confirmed Last Taken Type albuterol sulfate 90 mcg/actuation 2 inh inhalation Q4H PRN shortness 09/13/19 11/18/23 Unknown Rx aerosol inhaler of breath or wheezing #6.7 grams thyroid (pork) 15 mg tablet 15 mg PO DAILY 09/13/19 11/18/23 11/04/23 History ([place] Thyroid) tirzepatide 2.5 mg/0.5 mL 15 mg SUBCUT .WEEKLY 09/28/23 11/16/23 10/29/23 History subcutaneous pen injector (Mounjaro) Allergies Allergy/AdvReac Type Severity Reaction Status Date / Time levothyroxine Allergy ADR-Muscle Verified 09/28/23 15:25 Pain PFSH Acute PFSH: Medical History (Updated 11/18/23 @ 06:59 by Primo Carreon DO) Diabetes mellitus Hypertension Social History Smoking and tobacco/nicotine status: never used tobacco/nicotine Vitals/I&O/Wt Last Vital Signs Temp 97.3 F L 11/18/23 06:07 Pulse 70 11/18/23 06:07 Resp 16 11/18/23 06:07 BP 123/86 11/18/23 06:07 Pulse Ox 96 11/18/23 06:07 O2 Del Method Room Air 11/18/23 06:07 Weight last 48 hrs Weight 270 lb A&P Assessment and plan (1) Positive colorectal cancer screening using Cologuard test: (2) Diarrhea: Plan Diagnostic colonoscopy with random biopsies Attestations Medical Necessity Statement*: HOME Coding Level of Care Code Acute Code for Chg Fwd Diagnoses Positive colorectal cancer screening using Cologuard test R19.5 Diarrhea R19.7
[2023-11-18 07:24] VITALS: BP 111/75; PULSE 73; RESP 16; TEMP 36.2; O2SAT 95
[2023-11-18 07:30] VITALS: BP 104/73; PULSE 68; RESP 16; O2SAT 95
[2023-11-18 07:40] VITALS: BP 120/75; PULSE 73; RESP 18; O2SAT 95
[2023-11-18 07:49] VITALS: BP 118/73; PULSE 78; RESP 18; O2SAT 98
--- NOTE | 2023-11-18 08:00 | ANE.PACU2 ---
Inpatient post-anesthesia follow up: Airway intact: Yes Vital signs: Temperature 97.2 F Pulse Rate 78 Respiratory Rate 18 Blood Pressure 118/73 Pulse Oximetry 98 Oxygen Delivery Me thod Room Air Oxygen Flow Rate Fraction of Inspir ed Oxygen Hydration adequate: Yes Nausea and vomiting: No Pain level: 1 Mental status: Baseline
[2023-11-18 08:30] LABS: C.Diff PCR (Lab) NEGATIVE (Negative)
== END 2023-11-18 07:59 | disposition home or self-care (01) ==
PROVIDERS: PCP Family Medicine; Visit Provider Surgery
PROC: 0DJD8ZZ Inspection of Lower Intestinal Tract, Via Natural or Artificial Opening Endoscopic (ICD-10-PCS; CPT 45378; principal; 2023-11-18 07:00)
DX: R19.7 Diarrhea, unspecified (principal); D12.5 Benign neoplasm of sigmoid colon; E11.9 Type 2 diabetes mellitus without complications; I10 Essential (primary) hypertension; G47.30 Sleep apnea, unspecified; K21.9 Gastro-esophageal reflux disease without esophagitis; E66.01 Morbid (severe) obesity due to excess calories; Z68.41 Body mass index [BMI] 40.0-44.9, adult; E07.9 Disorder of thyroid, unspecified
CPT/HCPCS: 36416; 45380; 45385; 82274; 82962; 83630; 87045; 87177; 87209; 87427; 87449; 87493; 88305; J2704; J7030